=== PATIENT | female | born 1945 | race Caucasian/White ===

== ENCOUNTER 2021-11-03 07:06 | Emergency (ER) | payer MEDICARE, BC ==
[2021-11-03] MEDS ORDERED: Sodium Chloride 0.9% 10 ML Syringe FLUSH PRN (07:20)
[2021-11-03] MEDS ORDERED: Sodium Chloride 0.9% 1,000 ML IV ONE ×2 (07:20→09:45)
[2021-11-03] MEDS ORDERED: cefTRIAXone 2 GM Vial IV ONE (07:20)
[2021-11-03] MEDS ORDERED: fentaNYL 50 MCG/ML SDV IVPUSH ONE ×2 (07:21→08:12)
[2021-11-03 08:12] LABS: CHLORIDE,CL 104 mmol/L (98-107); SODIUM,NA 137 mmol/L (136-145)
[2021-11-03 08:17] LABS: ANION GAP 18.1 mmol/L (5-15)
[2021-11-03] MEDS ORDERED: Acetaminophen 325 MG Tab PO ONE (09:58)
[2021-11-03] MEDS ORDERED: Acetaminophen 650 MG Supp RECTAL ONE (10:05)
[2021-11-03 10:59] VITALS: BP 132/56; PULSE 94
== END 2021-11-03 10:30 | disposition short-term general hospital (02) ==
LOC: VM.ED 07:06
DX: A41.9 Sepsis, unspecified organism (principal); E78.00 Pure hypercholesterolemia, unspecified; I10 Essential (primary) hypertension; J44.9 Chronic obstructive pulmonary disease, unspecified; M10.9 Gout, unspecified; E03.9 Hypothyroidism, unspecified; Z91.048 Other nonmedicinal substance allergy status; Z79.82 Long term (current) use of aspirin; Z79.899 Other long term (current) drug therapy; Z20.822 Contact with and (suspected) exposure to COVID-19
CPT/HCPCS: 36415; 71045; 80053; 81001; 83605; 84145; 84484; 85025; 86140; 87040; 87077; 96365; 96375; 96376; 99284; 99285-25; A9270-GY; J0696; J3010; J3370; J7030; J7050; U0002